=== PATIENT | male | born 1965 | race Asian ===

== ENCOUNTER 2018-09-11 05:59 | Day surgery (SDC) | payer OTHER ==
[2018-09-11] MEDS ORDERED: LIDOCAINE 2% (SDV) 5 ML INJ (07:34)
[2018-09-11] MEDS ORDERED: PROPOFOL 40 ML (07:34)
[2018-09-11] MEDS ORDERED: PROPOFOL 20 ML (07:59)
[2018-09-11] MEDS ORDERED: ONDANSETRON 4 MG INJ IV (08:00)
== END 2018-09-11 11:59 | disposition home or self-care (01) ==
LOC: GIL 05:59
DX: R19.4 Change in bowel habit (principal); K20.8 Other esophagitis; K64.1 Second degree hemorrhoids; I10 Essential (primary) hypertension; E11.9 Type 2 diabetes mellitus without complications
CPT/HCPCS: 43239; 82962; 88305; 88312